=== PATIENT | female | born 1985 | race Caucasian/White ===

== ENCOUNTER 2016-12-25 13:33 | Emergency (ER) | payer OTHER ==
[~2016-12-25] VITALS: Ht 177.8 cm; Wt 73.2 kg
[~2016-12-25 13:33] MED LIST: AMITIZA8 MICROGRA PO; AMOXICILLIN500 M1 PO; AMOXICILLIN500 MG PO; BACLOFEN10 MG PO; BACTRIM,SEPT1 TABLET PO; CLINDAMYCIN HC300 MG PO; DICLOFENAC SODI25 MG PO; DICLOFENAC SODI75 MG PO; DIFLUCAN150 MG PO; DULOXETINE HCL60 MG PO; ENDOCET 5-3251 EACH PO; FIORICET 50-301 EACH PO; FLEXERIL10 MG PO; FLEXERIL5 MG PO; FLUCONAZOLE150 MG PO; GABAPENTIN300 MG PO; GLIPIZIDE10 MG PO; HUMALOG MI100 UNIT/6 SC; HUMALOG100 UNIT/1 SC; HUMALOG100 UNIT/2 SC; INDOCIN50 MG PO; LEVAQUIN500 MG PO; LIDOPATCH1 EACH TD; LISINOPRIL2.5 MG PO; LODINE400 MG PO; LORTAB 5-325 M1 EACH PO; LYRICA75 MG PO; MACROBID100 MG PO; MONISTAT 1 COM1 EACH VG; MOTRIN600 MG PO; NAPROSYN500 MG PO; NEURONTIN300 MG PO; NORCO 5/3251 TABLET PO; NORTRIPTYLINE H25 MG PO; PAMELOR25 MG PO; PERCOCET 5/31 TABLET PO; PHENERGAN-CODE120 ML PO; PREDNISONE10 MG PO; PROAIR HFA8.5 GM IH; PROMETHAZINE HC25 M1 PO; PROVENTIL17 GM IH; SERTRALINE HCL50 MG PO; SIMVASTATIN40 MG PO; SOMA250 MG PO; SYMBICORT60 INHALAT IH; TOPAMAX50 MG PO; TRAMADOL HCL50 MG PO; TUSSIN15 MG/5 M1 PO; ULTRAM50 MG PO; VIBRAMYCIN100 MG PO; VITAMIN D50000 UNI4 PO; ZESTRIL5 MG PO; ZOFRAN ODT4 MG PO; ZOLOFT100 MG PO; ZOLOFT50 MG PO; [UNRECOGNIZED DRUG - REMARK] SC
[2016-12-25] MEDS ORDERED: VENLAFAXINE HC150 M1 PO (15:46)
[2016-12-25] MEDS ORDERED: BACLOFEN10 MG PO (15:46)
[2016-12-25] MEDS ORDERED: VITAMIN D31000 UNIT PO (15:48)
[2016-12-25] MEDS ORDERED: ROSUVASTATIN CA10 MG PO (15:48)
[2016-12-25] MEDS ORDERED: SUMATRIPTAN SU100 MG PO (15:48)
[2016-12-25] MEDS ORDERED: AZITHROMYCIN250 MG PO (15:49)
[2016-12-25] MEDS ORDERED: TRADJENTA5 MG PO (15:49)
[2016-12-25] MEDS ORDERED: ZYRTEC10 M2 PO (15:49)
[2016-12-25] MEDS ORDERED: AMLODIPINE BESYL5 MG PO (15:50)
[2016-12-25 16:56] LABS: HEMATOCRIT 44.6 % (36.0-46.0); MCH 31.2 PG (29.0-34.0); MCHC 34.3 G/DL (30.0-36.0); MEAN PLAT.VOLUME 10.3 uM^3 (9.5-12.4); PLATELET COUNT 252 K/uL (156-360); RBC DIS.WIDTH-CV 13.4 % (11.8-14.6); RBC DIS.WIDTH-SD 44.1 % (39-53); WHITE BLOOD COUNT 9.8 K/uL (4.1-10.2)
[2016-12-25 17:05] LABS: CHLORIDE 113 mEq/L (99-109); POTASSIUM 3.5 mEq/L (3.7-5.4); SODIUM 143 mEq/L (136-147)
[2016-12-25 17:06] LABS: GLUCOSE 74 mg/dL (70-99)
[2016-12-25 17:08] LABS: ANION GAP 10 MEQ/L (2-14)
[2016-12-25 17:10] LABS: GFR ESTIMATE (CALCULATED) > 59 mL/min/
[2016-12-25 17:11] LABS: UREA NITROGEN (BUN) 8 mg/dL (9-23)
[2016-12-25 17:19] LABS: QUANTITATIVE HCG < 4.0 MIU/ML
[2016-12-25 17:34] LABS: ADD MIUA? NO; BILIRUBIN NEGATIVE; BLOOD NEGATIVE; COLOR STRAW ((YELLOW)); GLUCOSE (STRIP) NEGATIVE; KETONES NEGATIVE; LEUKOCYTES NEGATIVE; NITRITE NEGATIVE; PROTEIN (STRIP) NEGATIVE; SPECIFIC GRAVITY 1.003 (1.000-1.030); UCUL ADDED? NO; UROBILINOGEN 0.2 MG/DL (0.2-1.0)
[2016-12-25 18:08] VITALS: BP 128/79
== END 2016-12-25 18:10 | disposition home or self-care (01) ==
LOC: RME 13:33 → EME 13:33 → RME 18:10
PROVIDERS: Physician Assistant
DX: T50.905A Adverse effect of unspecified drugs, medicaments and biological substances, initial encounter (principal); R42 Dizziness and giddiness; G43.909 Migraine, unspecified, not intractable, without status migrainosus; E11.9 Type 2 diabetes mellitus without complications; J45.909 Unspecified asthma, uncomplicated; E78.5 Hyperlipidemia, unspecified; I10 Essential (primary) hypertension; K21.9 Gastro-esophageal reflux disease without esophagitis; Z88.8 Allergy status to other drugs, medicaments and biological substances; Z88.1 Allergy status to other antibiotic agents; F17.200 Nicotine dependence, unspecified, uncomplicated
CPT/HCPCS: 80048; 81003; 84702; 85027; 99281; 99284; J1885

== ENCOUNTER 2016-12-27 19:15 | Emergency (ER) | payer OTHER ==
[~2016-12-27] VITALS: Ht 147.3 cm; Wt 74.2 kg
[~2016-12-27 19:15] MED LIST changes: +AMLODIPINE BESYL5 MG PO; +AZITHROMYCIN250 MG PO; +ROSUVASTATIN CA10 MG PO; +SUMATRIPTAN SU100 MG PO; +TRADJENTA5 MG PO; +VENLAFAXINE HC150 M1 PO; +VITAMIN D31000 UNIT PO; +ZYRTEC10 M2 PO
[2016-12-27 20:08] LABS: HEMATOCRIT 45.2 % (36.0-46.0); MCH 31.1 PG (29.0-34.0); MCHC 33.8 G/DL (30.0-36.0); MCV 91.9 FL (83-99); MEAN PLAT.VOLUME 10.3 uM^3 (9.5-12.4); PLATELET COUNT 273 K/uL (156-360); RBC DIS.WIDTH-CV 13.4 % (11.8-14.6); RBC DIS.WIDTH-SD 43.9 % (39-53); RED BLOOD COUNT 4.92 M/uL (3.80-5.20); WHITE BLOOD COUNT 13.1 K/uL (4.1-10.2)
[2016-12-27 20:09] LABS: CHLORIDE 109 mEq/L (99-109); SODIUM 142 mEq/L (136-147)
[2016-12-27 20:12] LABS: ANION GAP 9 MEQ/L (2-14)
[2016-12-27 20:13] LABS: TOTAL BILIRUBIN 0.6 mg/dL (0.0-1.0)
[2016-12-27 20:15] LABS: ALKALINE PHOSPHATASE 111 IU/L (3-129); GFR ESTIMATE (CALCULATED) 55 mL/min/
[2016-12-27 20:16] LABS: GLUCOSE 433 mg/dL (70-99); POTASSIUM 4.4 mEq/L (3.7-5.4); UREA NITROGEN (BUN) 13 mg/dL (9-23)
[2016-12-27 20:23] LABS: QUANTITATIVE HCG < 4.0 MIU/ML
[2016-12-27 20:28] LABS: ADD MIUA? YES; BILIRUBIN NEGATIVE; BLOOD NEGATIVE; COLOR YELLOW ((YELLOW)); GLUCOSE (STRIP) >=500; KETONES NEGATIVE; LEUKOCYTES NEGATIVE; NITRITE NEGATIVE; PROTEIN (STRIP) NEGATIVE; SPECIFIC GRAVITY 1.024 (1.000-1.030); UROBILINOGEN 0.2 MG/DL (0.2-1.0)
[2016-12-27 20:45] LABS: BACTERIA NONE SEEN /HPF; EPITHELIAL CELLS 1+ /HPF; MUCUS TRACE /LPF; RED BLOOD CELLS 0-5 /HPF (0-5); UCUL ADDED? NO; UNCLASSIFIED CRYSTALS 1+ /HPF; WHITE BLOOD CELLS 0-5 /HPF (0-5)
[2016-12-27 22:06] LABS: POINT-OF-CARE METER ID UU13113800
[2016-12-27] MEDS ORDERED: NORCO 5/3251 TABLET PO (23:03)
[2016-12-27] MEDS ORDERED: PYRIDIUM100 MG PO (23:03)
[2016-12-27 23:11] VITALS: BP 116/69
== END 2016-12-27 23:18 | disposition home or self-care (01) ==
LOC: EME 19:15
PROVIDERS: Physician Assistant
DX: M54.5 Low back pain (principal); E11.65 Type 2 diabetes mellitus with hyperglycemia; R10.2 Pelvic and perineal pain; R30.0 Dysuria; R39.11 Hesitancy of micturition; J45.909 Unspecified asthma, uncomplicated; I10 Essential (primary) hypertension; E78.5 Hyperlipidemia, unspecified; Z87.442 Personal history of urinary calculi; Z79.4 Long term (current) use of insulin; F17.200 Nicotine dependence, unspecified, uncomplicated
CPT/HCPCS: 80053; 81003; 82948; 84702; 85027; 99281; 99284; J1885; J7030

== ENCOUNTER 2017-02-14 22:35 | Emergency (ER) | payer OTHER ==
[~2017-02-14] VITALS: Ht 149.9 cm; Wt 73.5 kg
[~2017-02-14 22:35] MED LIST changes: +PYRIDIUM100 MG PO
[2017-02-14] MEDS ORDERED: ATARAX,VISTARIL25 MG PO (23:59)
[2017-02-14] MEDS ORDERED: NORCO 5/3251 TABLET PO (23:59)
[2017-02-14] MEDS ORDERED: LIDOCREAM15 GM TP (23:59)
[2017-02-15 00:30] VITALS: BP 143/78
== END 2017-02-15 00:30 | disposition home or self-care (01) ==
LOC: EME 22:35
DX: L27.1 Localized skin eruption due to drugs and medicaments taken internally (principal); T36.4X5A Adverse effect of tetracyclines, initial encounter; F17.200 Nicotine dependence, unspecified, uncomplicated
CPT/HCPCS: 99281; 99283; Q0177

== ENCOUNTER → 2017-06-16 | Outpatient (CLI) | payer OTHER ==
[~2017-06-16] VITALS: Ht 147.3 cm; Wt 72.7 kg
[~2017-06-16] MED LIST changes: +ATARAX,VISTARIL25 MG PO; +CRESTOR10 MG PO; +IMITREX100 MG PO; +LIDOCREAM15 GM TP; +NEW INSULIN; +PYRIDIUM200 MG PO
[2017-06-16 13:12] LABS: CHLORIDE 111 mEq/L (99-109); POTASSIUM 3.7 mEq/L (3.7-5.4); SODIUM 142 mEq/L (136-147)
[2017-06-16 13:14] LABS: GLUCOSE 220 mg/dL (70-99)
[2017-06-16 13:15] LABS: ANION GAP 9 MEQ/L (2-14)
[2017-06-16 13:18] LABS: GFR ESTIMATE (CALCULATED) > 59 mL/min/
[2017-06-16 13:19] LABS: UREA NITROGEN (BUN) 14 mg/dL (9-23)
[2017-06-16 13:20] LABS: POINT-OF-CARE METER ID UU14174212
[2017-06-16 15:16] LABS: POINT-OF-CARE METER ID UU13113819
== END | disposition home or self-care (01) ==
LOC: AMB 12:29
PROVIDERS: Internal Medicine
PROC: 0DB68ZX Excision of Stomach, Via Natural or Artificial Opening Endoscopic, Diagnostic (ICD-10-PCS; principal; 2017-06-16)
DX: K29.70 Gastritis, unspecified, without bleeding (principal); B96.81 Helicobacter pylori [H. pylori] as the cause of diseases classified elsewhere; E11.65 Type 2 diabetes mellitus with hyperglycemia; E11.43 Type 2 diabetes mellitus with diabetic autonomic (poly)neuropathy; K31.84 Gastroparesis; I10 Essential (primary) hypertension; Z79.4 Long term (current) use of insulin; F17.200 Nicotine dependence, unspecified, uncomplicated; Z79.899 Other long term (current) drug therapy
CPT/HCPCS: 80048; 82948; 88305; 88342 TC

== ENCOUNTER 2017-06-17 18:29 | Emergency (ER) | payer OTHER ==
[~2017-06-17] VITALS: Ht 147.3 cm; Wt 74.0 kg
[~2017-06-17 18:29] MED LIST changes: -PYRIDIUM200 MG PO
[2017-06-17 19:17] LABS: ADD MIUA? YES; BILIRUBIN NEGATIVE; BLOOD LARGE; COLOR YELLOW ((YELLOW)); GLUCOSE (STRIP) NEGATIVE; KETONES NEGATIVE; LEUKOCYTES MODERATE; NITRITE POSITIVE; PROTEIN (STRIP) 30; SPECIFIC GRAVITY 1.014 (1.000-1.030); UROBILINOGEN 0.2 MG/DL (0.2-1.0)
[2017-06-17 19:45] LABS: BACTERIA 3+ /HPF; CASTS NONE SEEN /LPF; CRYSTALS NONE SEEN; EPITHELIAL CELLS 2+ /HPF; MUCUS NONE SEEN /LPF; RED BLOOD CELLS TNTC /HPF (0-5); WHITE BLOOD CELLS 20-30 /HPF (0-5)
[2017-06-17 20:04] LABS: HEMATOCRIT 39.9 % (36.0-46.0); MCHC 33.6 G/DL (30.0-36.0); MCV 92.4 FL (83-99); MEAN PLAT.VOLUME 10.4 uM^3 (9.5-12.4); PLATELET COUNT 234 K/uL (156-360); RBC DIS.WIDTH-CV 13.2 % (11.8-14.6); RED BLOOD COUNT 4.32 M/uL (3.80-5.20); WHITE BLOOD COUNT 13.7 K/uL (4.1-10.2)
[2017-06-17 20:14] LABS: CHLORIDE 111 mEq/L (99-109); POTASSIUM 3.5 mEq/L (3.7-5.4); SODIUM 138 mEq/L (136-147)
[2017-06-17 20:17] LABS: ANION GAP 7 MEQ/L (2-14); GLUCOSE 102 mg/dL (70-99)
[2017-06-17 20:18] LABS: TOTAL BILIRUBIN 0.9 mg/dL (0.0-1.0)
[2017-06-17 20:19] LABS: ALKALINE PHOSPHATASE 113 IU/L (3-129)
[2017-06-17 20:20] LABS: GFR ESTIMATE (CALCULATED) > 59 mL/min/
[2017-06-17 20:21] LABS: UREA NITROGEN (BUN) 15 mg/dL (9-23)
[2017-06-17 20:23] LABS: LIPASE 27 U/L (1.0-51.0)
[2017-06-17 20:29] LABS: QUANTITATIVE HCG < 4.0 MIU/ML
[2017-06-17] MEDS ORDERED: PYRIDIUM200 MG PO (20:59)
[2017-06-17] MEDS ORDERED: ZOFRAN ODT4 MG PO (20:59)
[2017-06-17] MEDS ORDERED: MACROBID100 MG PO (20:59)
[2017-06-17 21:37] VITALS: BP 101/55
== END 2017-06-17 21:39 | disposition home or self-care (01) ==
LOC: RME 18:29 → EME 18:29 → RME 21:39
PROVIDERS: Physician Assistant
DX: N39.0 Urinary tract infection, site not specified (principal); R31.9 Hematuria, unspecified; Z72.0 Tobacco use
CPT/HCPCS: 74176; 80053; 81003; 83690; 84702; 85027; 99281; 99284; J1885

== ENCOUNTER → 2017-07-09 | Outpatient (CLI) | payer OTHER ==
[~2017-07-09] MED LIST changes: +PYRIDIUM200 MG PO
== END | disposition home or self-care (01) ==
LOC: NUC 07:54
DX: R14.0 Abdominal distension (gaseous) (principal); E11.65 Type 2 diabetes mellitus with hyperglycemia
CPT/HCPCS: 78264; A9541

== ENCOUNTER 2017-08-02 18:51 | Emergency (ER) | payer OTHER ==
[~2017-08-02] VITALS: Ht 147.3 cm; Wt 78.8 kg
[2017-08-02 18:58] VITALS: BP 105/86
[2017-08-02] MEDS ORDERED: NAPROSYN500 MG PO (19:43)
[2017-08-02] MEDS ORDERED: FLEXERIL10 MG PO (19:43)
== END 2017-08-02 20:04 | disposition home or self-care (01) ==
LOC: EME 18:51
DX: S93.602A Unspecified sprain of left foot, initial encounter (principal); X58.XXXA Exposure to other specified factors, initial encounter; I10 Essential (primary) hypertension; E11.9 Type 2 diabetes mellitus without complications; Z79.4 Long term (current) use of insulin; F17.200 Nicotine dependence, unspecified, uncomplicated
CPT/HCPCS: 73610; 73630; 99281; 99283

== ENCOUNTER 2017-12-15 17:28 | Emergency (ER) | payer OTHER ==
[~2017-12-15] VITALS: Ht 147.3 cm; Wt 79.9 kg
[2017-12-15 18:03] LABS: HEMATOCRIT 42.1 % (36.0-46.0); HEMOGLOBIN 14.3 G/DL (11.9-15.5); MCH 30.2 PG (29.0-34.0); MCV 88.8 FL (83-99); PLATELET COUNT 232 K/uL (156-360); RBC DIS.WIDTH-CV 13.6 % (11.8-14.6); RBC DIS.WIDTH-SD 44.9 % (39-53); RED BLOOD COUNT 4.74 M/uL (3.80-5.20); WHITE BLOOD COUNT 10.8 K/uL (4.1-10.2)
[2017-12-15 18:12] LABS: ALBUMIN 3.8 g/dL (3.2-4.8); CHLORIDE 110 mEq/L (99-109); POTASSIUM 3.4 mEq/L (3.7-5.4); SODIUM 137 mEq/L (136-147)
[2017-12-15 18:14] LABS: GLUCOSE 134 mg/dL (70-99)
[2017-12-15 18:16] LABS: TOTAL BILIRUBIN 0.3 mg/dL (0.0-1.0)
[2017-12-15 18:18] LABS: ALKALINE PHOSPHATASE 135 IU/L (3-129); CREATININE 0.9 mg/dL (0.6-1.3); GFR ESTIMATE (CALCULATED) > 59 mL/min/
[2017-12-15 18:19] LABS: UREA NITROGEN (BUN) 9 mg/dL (9-23)
[2017-12-15 18:20] LABS: AST (GOT) 13 IU/L (2-34)
[2017-12-15 18:21] LABS: ALT (GPT) 12 IU/L (3-49)
[2017-12-15 18:27] LABS: QUANTITATIVE HCG < 4.0 MIU/ML
[2017-12-15 19:38] LABS: APPEARANCE CLEAR ((CLEAR)); BILIRUBIN NEGATIVE; BLOOD NEGATIVE; COLOR YELLOW ((YELLOW)); GLUCOSE (STRIP) NEGATIVE; KETONES NEGATIVE; LEUKOCYTES SMALL; NITRITE NEGATIVE; PROTEIN (STRIP) NEGATIVE; SPECIFIC GRAVITY 1.008 (1.000-1.030); UROBILINOGEN 0.2 MG/DL (0.2-1.0)
[2017-12-15 19:41] LABS: BACTERIA RARE /HPF; EPITHELIAL CELLS 1+ /HPF; MUCUS NONE SEEN /LPF; RED BLOOD CELLS 0-5 /HPF (0-5); UCUL ADDED? NO; WHITE BLOOD CELLS 0-5 /HPF (0-5)
[2017-12-15] MEDS ORDERED: IMODIUM A-D2 M2 PO (20:39)
[2017-12-15] MEDS ORDERED: ZOFRAN4 MG PO (20:39)
[2017-12-15 21:05] VITALS: BP 119/69
== END 2017-12-15 21:06 | disposition home or self-care (01) ==
LOC: EME 17:28
DX: R19.7 Diarrhea, unspecified (principal); I10 Essential (primary) hypertension; E78.5 Hyperlipidemia, unspecified; E11.9 Type 2 diabetes mellitus without complications; J45.909 Unspecified asthma, uncomplicated; K21.9 Gastro-esophageal reflux disease without esophagitis; N83.209 Unspecified ovarian cyst, unspecified side; F32.9 Major depressive disorder, single episode, unspecified; F17.200 Nicotine dependence, unspecified, uncomplicated; Z79.4 Long term (current) use of insulin; Z87.442 Personal history of urinary calculi; Z88.1 Allergy status to other antibiotic agents; Z88.8 Allergy status to other drugs, medicaments and biological substances
CPT/HCPCS: 80053; 81003; 84702; 85027; 87493; 87506; 99281; 99284